=== PATIENT | male | born 1970 | race Caucasian/White ===

== ENCOUNTER 2022-07-13 17:38 | Inpatient (IN) | payer OTHER ==
[2022-07-13] MEDS ORDERED: IBUPROFEN 400 MG TABLET (FP) PO PRN (19:52)
[2022-07-13] MEDS ORDERED: guaiFENesin 200 MG/10 ML 10 ML UNIT-DOSE CUPS PO PRN (19:52)
[2022-07-13] MEDS ORDERED: MAGNESIUM HYDROX 2400MG/30ML ORAL SUSPENSION 30 ML CUP PO PRN (19:52)
[2022-07-13] MEDS ORDERED: LOPERAMIDE HCL 2 MG CAPSULE PO PRN (19:52)
[2022-07-13] MEDS ORDERED: P-EPHED 60MG/TRIPROLIDI 2.5MG TABLET PO PRN (19:52)
[2022-07-13] MEDS ORDERED: NICOTINE 10 MG CARTRIDGE (INHALER) IH PRN (19:52)
[2022-07-13] MEDS ORDERED: MAGNESIUM CITRATE 300 ML BOTTLE PO PRN (19:52)
[2022-07-13] MEDS ORDERED: ACETAMINOPHEN 325 MG TABLET (FP) PO PRN (19:52)
[2022-07-13] MEDS: THIAMINE HCL 100 MG TABLET (FP) PO SCH (23:44)
[2022-07-13] MEDS: MELATONIN 5 MG TABLETS PO SCH (23:44)
[2022-07-14] MEDS: NICOTINE 7 MG/24 HOURS TOPICAL PATCH TD SCH (10:04)
[2022-07-14] MEDS: PRENATAL VITAMINS W/ FOLIC ACID TABLET (FP) PO SCH (10:04)
[2022-07-14] MEDS ORDERED: ALBUTEROL SO4 HFA INHALER IH PRN (11:49)
[2022-07-14 12:48] LABS: HEMATOCRIT 31.1 % (35.4-49); HEMOGLOBIN 9.8 GM/dL (11.7-16.9); MCH 21.6 pg (25.7-33.7); MCHC 31.7 g/dl (32.0-35.9); MEAN CELL VOLUME 68.2 fl (80-96); MEAN PLT VOLUME 7.4 fl (7.5-11.1); PLATELET COUNT 258 10^3/uL (134-434); RBC 4.56 M/mm3 (4.00-5.60); RDW 19.2 % (11.9-15.9)
[2022-07-14 12:51] LABS: ALBUMIN 2.3 g/dl (3.4-5.0); BLOOD UREA NITROGEN 12.3 mg/dL (7-18); CALCIUM 7.8 mg/dL (8.5-10.1)
[2022-07-14 12:54] LABS: CREATININE 0.7 mg/dL (0.55-1.3); WHITE BLOOD COUNT 1.4 K/mm3 (4.0-10.0)
[2022-07-14 12:56] LABS: BILIRUBIN,TOTAL 0.2 mg/dL (0.2-1); TOT PROT 6.6 g/dl (6.4-8.2)
[2022-07-14] MEDS ORDERED: TUBERCULIN PPD 5 TU/0.1ML VIAL ID ONE (17:04)
[2022-07-14] MEDS: THIAMINE HCL 100 MG TABLET (FP) PO SCH (21:48)
[2022-07-14] MEDS: MELATONIN 5 MG TABLETS PO SCH (21:48)
[2022-07-15] MEDS ORDERED: POTASSIUM CHLORIDE TABS 20 MEQ TABLET.ER (FP) PO ONE (09:07)
[2022-07-15] MEDS: FERROUS SO4 325 MG TABLET (FP) PO SCH (10:15)
[2022-07-15] MEDS: NICOTINE 7 MG/24 HOURS TOPICAL PATCH TD SCH (10:15)
[2022-07-15] MEDS: PRENATAL VITAMINS W/ FOLIC ACID TABLET (FP) PO SCH (10:15)
[2022-07-15] MEDS: MAG HYDROX/AL HYDROX/SIMETH 30 ML UNIT-DOSE CUP PO PRN (14:52)
[2022-07-15] MEDS: THIAMINE HCL 100 MG TABLET (FP) PO SCH (21:48)
[2022-07-15] MEDS: MELATONIN 5 MG TABLETS PO SCH (21:48)
[2022-07-15] MEDS: OLANZapine 10 MG TABLET PO SCH (21:49)
[2022-07-16] MEDS: PRENATAL VITAMINS W/ FOLIC ACID TABLET (FP) PO SCH (10:23)
[2022-07-16] MEDS: NICOTINE 7 MG/24 HOURS TOPICAL PATCH TD SCH (10:24)
[2022-07-16] MEDS: FERROUS SO4 325 MG TABLET (FP) PO SCH (10:24)
[2022-07-16] MEDS: SERTRALINE HCL 50 MG TABLET (FP) PO SCH (10:24)
[2022-07-16] MEDS: MAG HYDROX/AL HYDROX/SIMETH 30 ML UNIT-DOSE CUP PO PRN (10:25)
[2022-07-16 11:22] LABS: CALCIUM 8.5 mg/dL (8.5-10.1)
[2022-07-16 11:23] LABS: BLOOD UREA NITROGEN 7.3 mg/dL (7-18); MAGNESIUM 1.9 mg/dL (1.8-2.4)
[2022-07-16 11:26] LABS: CREATININE 0.7 mg/dL (0.55-1.3); PHOSPHOROUS 2.7 mg/dL (2.5-4.9)
[2022-07-16] MEDS: MELATONIN 5 MG TABLETS PO SCH (21:45)
[2022-07-16] MEDS: THIAMINE HCL 100 MG TABLET (FP) PO SCH (21:45)
[2022-07-16] MEDS: OLANZapine 10 MG TABLET PO SCH (21:47)
[2022-07-16] MEDS: hydrOXYzine PAMOATE 25 MG CAPSULE (FP) PO PRN (21:48)
[2022-07-16 23:20] LABS: PH,URINE 7.5 (5.0-8.0); URINE APPEARANCE CLEAR; URINE BILIRUBIN NEGATIVE (NEGATIVE); URINE COLOR YELLOW; URINE GLUCOSE (UA) NEGATIVE (NEGATIVE); URINE KETONE NEGATIVE (NEGATIVE); URINE LEUK ESTERASE NEGATIVE (NEGATIVE); URINE NITRITE NEGATIVE (NEGATIVE); URINE PROTEIN TRACE (NEGATIVE)
[2022-07-17] MEDS: NICOTINE 7 MG/24 HOURS TOPICAL PATCH TD SCH (09:13)
[2022-07-17] MEDS: FERROUS SO4 325 MG TABLET (FP) PO SCH (09:13)
[2022-07-17] MEDS: PRENATAL VITAMINS W/ FOLIC ACID TABLET (FP) PO SCH (09:13)
[2022-07-17] MEDS: SERTRALINE HCL 50 MG TABLET (FP) PO SCH (09:13)
[2022-07-17] MEDS: MELATONIN 5 MG TABLETS PO SCH (21:35)
[2022-07-17] MEDS: THIAMINE HCL 100 MG TABLET (FP) PO SCH (21:35)
[2022-07-17] MEDS: OLANZapine 10 MG TABLET PO SCH (21:35)
[2022-07-17] MEDS: hydrOXYzine PAMOATE 25 MG CAPSULE (FP) PO PRN (21:35)
[2022-07-18] MEDS: NICOTINE 7 MG/24 HOURS TOPICAL PATCH TD SCH (10:30)
[2022-07-18] MEDS: FERROUS SO4 325 MG TABLET (FP) PO SCH (10:30)
[2022-07-18] MEDS: PRENATAL VITAMINS W/ FOLIC ACID TABLET (FP) PO SCH (10:30)
[2022-07-18] MEDS: SERTRALINE HCL 50 MG TABLET (FP) PO SCH (10:30)
[2022-07-18] MEDS: hydrOXYzine PAMOATE 25 MG CAPSULE (FP) PO PRN (21:35)
[2022-07-18] MEDS: MELATONIN 5 MG TABLETS PO SCH (21:35)
[2022-07-18] MEDS: THIAMINE HCL 100 MG TABLET (FP) PO SCH (21:35)
[2022-07-18] MEDS: OLANZapine 10 MG TABLET PO SCH (21:36)
[2022-07-19] MEDS: SERTRALINE HCL 50 MG TABLET (FP) PO SCH (09:28)
[2022-07-19] MEDS: FERROUS SO4 325 MG TABLET (FP) PO SCH (09:28)
[2022-07-19] MEDS: NICOTINE 7 MG/24 HOURS TOPICAL PATCH TD SCH (09:28)
[2022-07-19] MEDS: PRENATAL VITAMINS W/ FOLIC ACID TABLET (FP) PO SCH (09:28)
[2022-07-19] MEDS ORDERED: POTASSIUM CHLORIDE TABS 20 MEQ TABLET.ER (FP) PO ONE (14:23)
[2022-07-19] MEDS ORDERED: NICOTINE 7 MG/24 HOURS TOPICAL PATCH TD PRN (14:25)
[2022-07-19] MEDS: THIAMINE HCL 100 MG TABLET (FP) PO SCH (21:30)
[2022-07-19] MEDS: OLANZapine 10 MG TABLET PO SCH (21:30)
[2022-07-19] MEDS: MELATONIN 5 MG TABLETS PO SCH (21:30)
[2022-07-20] MEDS: FERROUS SO4 325 MG TABLET (FP) PO SCH (09:55)
[2022-07-20] MEDS: SERTRALINE HCL 50 MG TABLET (FP) PO SCH (09:55)
[2022-07-20] MEDS: PRENATAL VITAMINS W/ FOLIC ACID TABLET (FP) PO SCH (09:55)
[2022-07-20 12:20] LABS: CHLORIDE 106 mmol/L (98-107); SODIUM 141 mmol/L (136-145)
[2022-07-20 12:22] LABS: ALBUMIN 2.4 g/dl (3.4-5.0); ANION GAP 8 MMOL/L (8-16); BLOOD UREA NITROGEN 16.8 mg/dL (7-18); CALCIUM 8.3 mg/dL (8.5-10.1); CO2 27 mmol/L (21-32)
[2022-07-20 12:23] LABS: GLUCOSE,RANDOM 125 mg/dL (74-106)
[2022-07-20 12:25] LABS: SGPT/ALT 19 U/L (13-61)
[2022-07-20 12:26] LABS: CREATININE 0.7 mg/dL (0.55-1.3); SGOT/AST 17 U/L (15-37)
[2022-07-20 12:27] LABS: BILIRUBIN,TOTAL < 0.1 mg/dL (0.2-1); TOT PROT 6.9 g/dl (6.4-8.2)
[2022-07-20 12:28] LABS: ALK PHOS 90 U/L (45-117)
[2022-07-20] MEDS: hydrOXYzine PAMOATE 25 MG CAPSULE (FP) PO PRN (21:38)
[2022-07-20] MEDS: THIAMINE HCL 100 MG TABLET (FP) PO SCH (21:38)
[2022-07-20] MEDS: MELATONIN 5 MG TABLETS PO SCH (21:38)
[2022-07-20] MEDS: OLANZapine 5 MG TABLET PO SCH (21:38)
[2022-07-21] MEDS: FERROUS SO4 325 MG TABLET (FP) PO SCH (09:31)
[2022-07-21] MEDS: PRENATAL VITAMINS W/ FOLIC ACID TABLET (FP) PO SCH (09:32)
[2022-07-21] MEDS: SERTRALINE HCL 50 MG TABLET (FP) PO SCH (09:32)
[2022-07-21] MEDS: THIAMINE HCL 100 MG TABLET (FP) PO SCH (21:37)
[2022-07-21] MEDS: MELATONIN 5 MG TABLETS PO SCH (21:37)
[2022-07-21] MEDS: OLANZapine 5 MG TABLET PO SCH (21:37)
[2022-07-22] MEDS: PRENATAL VITAMINS W/ FOLIC ACID TABLET (FP) PO SCH (10:03)
[2022-07-22] MEDS: FERROUS SO4 325 MG TABLET (FP) PO SCH (10:03)
[2022-07-22] MEDS: SERTRALINE HCL 50 MG TABLET (FP) PO SCH (10:03)
[2022-07-22] MEDS: MELATONIN 5 MG TABLETS PO SCH (21:31)
[2022-07-22] MEDS: THIAMINE HCL 100 MG TABLET (FP) PO SCH (21:31)
[2022-07-22] MEDS: OLANZapine 5 MG TABLET PO SCH (21:31)
[2022-07-23] MEDS: FERROUS SO4 325 MG TABLET (FP) PO SCH (09:10)
[2022-07-23] MEDS: SERTRALINE HCL 50 MG TABLET (FP) PO SCH (09:10)
[2022-07-23] MEDS: PRENATAL VITAMINS W/ FOLIC ACID TABLET (FP) PO SCH (09:10)
[2022-07-23] MEDS: THIAMINE HCL 100 MG TABLET (FP) PO SCH (21:47)
[2022-07-23] MEDS: MELATONIN 5 MG TABLETS PO SCH (21:47)
[2022-07-23] MEDS: OLANZapine 5 MG TABLET PO SCH (21:47)
[2022-07-24] MEDS: FERROUS SO4 325 MG TABLET (FP) PO SCH (10:07)
[2022-07-24] MEDS: SERTRALINE HCL 50 MG TABLET (FP) PO SCH (10:07)
[2022-07-24] MEDS: PRENATAL VITAMINS W/ FOLIC ACID TABLET (FP) PO SCH (10:08)
[2022-07-24] MEDS: MELATONIN 5 MG TABLETS PO SCH (21:55)
[2022-07-24] MEDS: hydrOXYzine PAMOATE 25 MG CAPSULE (FP) PO PRN (21:55)
[2022-07-24] MEDS: OLANZapine 5 MG TABLET PO SCH (21:55)
[2022-07-24] MEDS: THIAMINE HCL 100 MG TABLET (FP) PO SCH (21:55)
[2022-07-25] MEDS: FERROUS SO4 325 MG TABLET (FP) PO SCH (10:03)
[2022-07-25] MEDS: SERTRALINE HCL 50 MG TABLET (FP) PO SCH (10:03)
[2022-07-25] MEDS: PRENATAL VITAMINS W/ FOLIC ACID TABLET (FP) PO SCH (10:03)
[2022-07-25] MEDS: OLANZapine 5 MG TABLET PO SCH (21:47)
[2022-07-25] MEDS: MELATONIN 5 MG TABLETS PO SCH (21:48)
[2022-07-25] MEDS: hydrOXYzine PAMOATE 25 MG CAPSULE (FP) PO PRN (21:48)
[2022-07-25] MEDS: THIAMINE HCL 100 MG TABLET (FP) PO SCH (21:48)
[2022-07-26 06:48] VITALS: BP 109/72; PULSE 89; RESP 18; TEMP 98.7
[2022-07-26] MEDS: PRENATAL VITAMINS W/ FOLIC ACID TABLET (FP) PO SCH (09:48)
[2022-07-26] MEDS: FERROUS SO4 325 MG TABLET (FP) PO SCH (09:48)
[2022-07-26] MEDS: SERTRALINE HCL 50 MG TABLET (FP) PO SCH (09:48)
== END 2022-07-26 14:00 | disposition home or self-care (01) | DRG 772 ==
LOC: YASAS 17:38 → Y3E 22:39
PROVIDERS: ADMIT Allergy & Immunology; ATTEND Psychiatry & Neurology Pain Medicine
PROC: HZ42ZZZ Group Counseling for Substance Abuse Treatment, Cognitive-Behavioral (ICD-10-PCS; principal; 2022-07-13)
DX: F14.20 Cocaine dependence, uncomplicated (principal); F12.20 Cannabis dependence, uncomplicated; F17.210 Nicotine dependence, cigarettes, uncomplicated; F20.0 Paranoid schizophrenia; F19.24 Other psychoactive substance dependence with psychoactive substance-induced mood disorder; F41.9 Anxiety disorder, unspecified; F32.A Depression, unspecified; D64.9 Anemia, unspecified; D72.819 Decreased white blood cell count, unspecified; J45.30 Mild persistent asthma, uncomplicated; R07.9 Chest pain, unspecified; R79.89 Other specified abnormal findings of blood chemistry; R60.0 Localized edema; Z89.222 Acquired absence of left upper limb above elbow; Z89.612 Acquired absence of left leg above knee; Z91.51 Personal history of suicidal behavior; Z88.8 Allergy status to other drugs, medicaments and biological substances
CPT/HCPCS: 36415; 80048; 80053; 81003; 83735; 84100; 85027; 86780; 86803; C9803-CS; U0003; U0005

== ENCOUNTER 2022-09-23 23:50 | Inpatient (IN) | payer OTHER ==
[2022-09-23 23:56] VITALS: BMI 23.8
[2022-09-24] MEDS ORDERED: ACETAMINOPHEN 1000 MG/100 ML BAG IVPB ONE (00:52)
[2022-09-24] MEDS ORDERED: VANCOMYCIN 1 GM in D5W (PRE-DOCKED) 1,000 MG/250 ML IVPB ONE (00:53)
[2022-09-24] MEDS ORDERED: CLINDAMYCIN 600MG PREMIX IVPB 600 MG/50 ML BAG IVPB ONE ×2 (00:54→02:31)
[2022-09-24] MEDS ORDERED: ACETAMINOPHEN INJECTION 100 ML IVPB ONE (02:30)
[2022-09-24 02:33] LABS: HEMATOCRIT 35.1 % (35.4-49); HEMOGLOBIN 11.3 GM/dL (11.7-16.9); MCH 24.4 pg (25.7-33.7); MCHC 32.1 g/dl (32.0-35.9); MEAN CELL VOLUME 76.2 fl (80-96); MEAN PLT VOLUME 7.7 fl (7.5-11.1); PLATELET COUNT 273 10^3/uL (134-434); RBC 4.61 M/mm3 (4.00-5.60); RDW 22.2 % (11.9-15.9); WHITE BLOOD COUNT 2.7 K/mm3 (4.0-10.0)
[2022-09-24 02:39] LABS: INR 0.99 (0.83-1.09); PROTHROMBIN TIME (PATIENT) 11.5 SEC (9.7-13.0)
[2022-09-24 02:41] LABS: ACTIVATED PTT 28.6 SECONDS (25.2-36.5)
[2022-09-24 02:52] LABS: ALBUMIN 2.7 g/dl (3.4-5.0); BLOOD UREA NITROGEN 11.8 mg/dL (7-18); CALCIUM 8.4 mg/dL (8.5-10.1)
[2022-09-24 02:55] LABS: CREATININE 0.7 mg/dL (0.55-1.3)
[2022-09-24 02:57] LABS: BILIRUBIN,TOTAL 0.1 mg/dL (0.2-1); TOT PROT 6.9 g/dl (6.4-8.2)
[2022-09-24 04:30] LABS: ANISOCYTOSIS 2+; MACROCYTOSIS 0; OVALOCYTE 2+; TEAR DROP CELLS 1+
[2022-09-24] MEDS ORDERED: PIPERACILLIN/TAZOB 3.375 GM 3.375 GM/50 ML BAG IVPB ONE (06:49)
[2022-09-24] MEDS ORDERED: VANCOMYCIN 1 GM/200 ML PREMIX BAG (RESTRICTED TO ID ONLY) IVPB SCH (07:00)
[2022-09-24] MEDS: PIPERACILLIN/TAZOB 3.375 GM 3.375 GM in DEXTROSE 5%-WATER - 50 ML IVPB SCH ×3 (07:01→19:14)
[2022-09-24] MEDS: SODIUM CHLORIDE 1,000 ML IV SCH (07:01)
[2022-09-24] MEDS ORDERED: VANCOMYCIN/WATER FOR INJ (PEG) 1,000 MG/200 ML BAG IVPB ONE (07:39)
[2022-09-24 07:55] LABS: HEMATOCRIT 35.5 % (35.4-49); HEMOGLOBIN 11.2 GM/dL (11.7-16.9); MCH 24.1 pg (25.7-33.7); MCHC 31.5 g/dl (32.0-35.9); MEAN CELL VOLUME 76.7 fl (80-96); MEAN PLT VOLUME 7.4 fl (7.5-11.1); PLATELET COUNT 247 10^3/uL (134-434); RBC 4.63 M/mm3 (4.00-5.60); RDW 22.2 % (11.9-15.9); WHITE BLOOD COUNT 2.1 K/mm3 (4.0-10.0)
[2022-09-24 08:15] LABS: BLOOD UREA NITROGEN 12.4 mg/dL (7-18); CALCIUM 8.2 mg/dL (8.5-10.1); MAGNESIUM 1.8 mg/dL (1.8-2.4)
[2022-09-24 08:16] LABS: ALBUMIN 2.6 g/dl (3.4-5.0)
[2022-09-24 08:18] LABS: PHOSPHOROUS 2.6 mg/dL (2.5-4.9)
[2022-09-24 08:19] LABS: CREATININE 0.7 mg/dL (0.55-1.3)
[2022-09-24 08:20] LABS: BILIRUBIN,TOTAL 0.1 mg/dL (0.2-1); TOT PROT 6.5 g/dl (6.4-8.2)
[2022-09-24 09:05] LABS: ANISOCYTOSIS 1+; MACROCYTOSIS 1+
[2022-09-24] MEDS ORDERED: OLANZapine 7.5 MG TABLET PO SCH (10:00)
[2022-09-24] MEDS ORDERED: traMADol HCL 50 MG TABLET PO PRN (11:24)
[2022-09-24] MEDS: OLANZAPINE 10 MG, OLANZAPINE 5 MG PO SCH (11:50)
[2022-09-24] MEDS: SERTRALINE HCL 50 MG TABLET (FP) PO SCH (11:50)
[2022-09-24] MEDS: ENOXAPARIN NA (PORCINE) 40 MG/0.4 ML DISP.SYRIN SQ SCH (11:50)
[2022-09-24] MEDS: NICOTINE 14 MG/24 HOURS TOPICAL PATCH TD SCH (11:51)
[2022-09-24] MEDS ORDERED: VANCOMYCIN/WATER FOR INJ (PEG) 1,000 MG/200 ML BAG IVPB SCH (12:00)
[2022-09-24 12:51] LABS: HIV INTERPRETATION NEGATIVE (NEGATIVE)
[2022-09-25] MEDS ORDERED: PIPERACILLIN/TAZOB 3.375 GM 3.375 GM in DEXTROSE 5%-WATER - 50 ML IVPB SCH (02:00)
[2022-09-25] MEDS: PIPERACILLIN/TAZOB 3.375 GM 3.375 GM in DEXTROSE 5%-WATER - 50 ML IVPB SCH ×3 (02:28→19:02)
[2022-09-25] MEDS: ACETAMINOPHEN 325 MG TABLET (FP) PO PRN ×2 (06:17→19:05)
[2022-09-25] MEDS ORDERED: VANCOMYCIN 1 GM/200 ML PREMIX BAG (RESTRICTED TO ID ONLY) IVPB SCH (07:00)
[2022-09-25] MEDS: SODIUM CHLORIDE 1,000 ML IV SCH ×2 (07:22→20:37)
[2022-09-25] MEDS ORDERED: LORazepam 2 MG TABLET PO PRN (10:29)
[2022-09-25] MEDS ORDERED: LORazepam 1 MG TABLET PO PRN (10:34)
[2022-09-25] MEDS: OLANZAPINE 10 MG, OLANZAPINE 5 MG PO SCH (10:56)
[2022-09-25] MEDS: SERTRALINE HCL 50 MG TABLET (FP) PO SCH (10:56)
[2022-09-25] MEDS: NICOTINE 14 MG/24 HOURS TOPICAL PATCH TD SCH (10:57)
[2022-09-25] MEDS: ENOXAPARIN NA (PORCINE) 40 MG/0.4 ML DISP.SYRIN SQ SCH (10:57)
[2022-09-26] MEDS: PIPERACILLIN/TAZOB 3.375 GM 3.375 GM in DEXTROSE 5%-WATER - 50 ML IVPB SCH ×3 (02:00→17:45)
[2022-09-26] MEDS: SODIUM CHLORIDE 1,000 ML IV SCH (06:05)
[2022-09-26] MEDS: ACETAMINOPHEN 325 MG TABLET (FP) PO PRN ×2 (06:12→13:07)
[2022-09-26 10:21] LABS: HEMATOCRIT 35.1 % (35.4-49); HEMOGLOBIN 11.5 GM/dL (11.7-16.9); MCH 24.8 pg (25.7-33.7); MCHC 32.8 g/dl (32.0-35.9); MEAN CELL VOLUME 75.7 fl (80-96); MEAN PLT VOLUME 7.2 fl (7.5-11.1); PLATELET COUNT 237 10^3/uL (134-434); RBC 4.64 M/mm3 (4.00-5.60); RDW 21.6 % (11.9-15.9)
[2022-09-26 10:30] LABS: WHITE BLOOD COUNT 1.9 K/mm3 (4.0-10.0)
[2022-09-26] MEDS: OLANZAPINE 10 MG, OLANZAPINE 5 MG PO SCH (10:37)
[2022-09-26] MEDS: ENOXAPARIN NA (PORCINE) 40 MG/0.4 ML DISP.SYRIN SQ SCH (10:37)
[2022-09-26] MEDS: NICOTINE 14 MG/24 HOURS TOPICAL PATCH TD SCH (10:37)
[2022-09-26] MEDS: SERTRALINE HCL 50 MG TABLET (FP) PO SCH (10:37)
[2022-09-26 10:39] LABS: CALCIUM 8.3 mg/dL (8.5-10.1)
[2022-09-26 10:40] LABS: ALBUMIN 2.8 g/dl (3.4-5.0); BLOOD UREA NITROGEN 14.5 mg/dL (7-18)
[2022-09-26 10:43] LABS: CREATININE 0.8 mg/dL (0.55-1.3)
[2022-09-26 10:45] LABS: BILIRUBIN,TOTAL 0.2 mg/dL (0.2-1); TOT PROT 6.9 g/dl (6.4-8.2)
[2022-09-26 11:54] LABS: ANISOCYTOSIS 1+; MACROCYTOSIS 0
[2022-09-27] MEDS: PIPERACILLIN/TAZOB 3.375 GM 3.375 GM in DEXTROSE 5%-WATER - 50 ML IVPB SCH ×4 (02:23→15:52)
[2022-09-27 03:31] VITALS: RESP 18
[2022-09-27] MEDS: ACETAMINOPHEN 325 MG TABLET (FP) PO PRN (10:17)
[2022-09-27] MEDS: OLANZAPINE 10 MG, OLANZAPINE 5 MG PO SCH (10:18)
[2022-09-27] MEDS: NICOTINE 14 MG/24 HOURS TOPICAL PATCH TD SCH (10:18)
[2022-09-27] MEDS: ENOXAPARIN NA (PORCINE) 40 MG/0.4 ML DISP.SYRIN SQ SCH (10:18)
[2022-09-27] MEDS: SERTRALINE HCL 50 MG TABLET (FP) PO SCH (10:18)
[2022-09-27 16:21] LABS: HEMATOCRIT 35.9 % (35.4-49); HEMOGLOBIN 11.6 GM/dL (11.7-16.9); MCH 24.7 pg (25.7-33.7); MCHC 32.3 g/dl (32.0-35.9); MEAN CELL VOLUME 76.3 fl (80-96); MEAN PLT VOLUME 7.2 fl (7.5-11.1); PLATELET COUNT 263 10^3/uL (134-434); RBC 4.71 M/mm3 (4.00-5.60); RDW 21.7 % (11.9-15.9); WHITE BLOOD COUNT 2.1 K/mm3 (4.0-10.0)
[2022-09-27 16:46] LABS: CALCIUM 8.3 mg/dL (8.5-10.1)
[2022-09-27 16:47] LABS: ALBUMIN 2.9 g/dl (3.4-5.0); BLOOD UREA NITROGEN 15.6 mg/dL (7-18); MAGNESIUM 1.8 mg/dL (1.8-2.4)
[2022-09-27 16:50] LABS: CREATININE 0.8 mg/dL (0.55-1.3)
[2022-09-27 16:51] LABS: BILIRUBIN,TOTAL 0.1 mg/dL (0.2-1); TOT PROT 7.2 g/dl (6.4-8.2)
[2022-09-27 17:13] LABS: ANISOCYTOSIS 0; MACROCYTOSIS 0; PLATELET ESTIMATE NORMAL
[2022-09-27] MEDS ORDERED: AMOX TR/POT CLAV 500MG/125MG TABLETS (FP) PO SCH (17:30)
[2022-09-27 18:09] VITALS: BP 141/84; PULSE 104; TEMP 98.2
== END 2022-09-27 18:42 | disposition other institution (70) | DRG 383 ==
LOC: JER 23:50 → JERBED 09-24 01:00 → J8W 09-24 08:03
PROVIDERS: ADMIT Internal Medicine; ATTEND Nurse Practitioner Family
DX: L03.115 Cellulitis of right lower limb (principal); F41.9 Anxiety disorder, unspecified; F32.A Depression, unspecified; Z89.612 Acquired absence of left leg above knee; Z99.3 Dependence on wheelchair; J45.30 Mild persistent asthma, uncomplicated; F20.0 Paranoid schizophrenia; Z91.51 Personal history of suicidal behavior; F17.210 Nicotine dependence, cigarettes, uncomplicated; F14.20 Cocaine dependence, uncomplicated; D72.819 Decreased white blood cell count, unspecified
CPT/HCPCS: 0241U-QW; 36415; 73590-TC-RT-FY; 73610-TC-RT-FY; 73630-TC-RT-FY; 73701-TC-RT; 80053; 83605; 83735; 84100; 85025; 85610; 85651; 85730; 86140; 86704; 86803; 87040; 87081; 87340; 87389; 87517; 93005; 93010; 99285-25; C9803-CS; Q9967; U0003; U0005

== ENCOUNTER 2022-09-27 19:09 | Inpatient (IN) | payer OTHER ==
[2022-09-27 21:07] VITALS: BMI 22.6
[2022-09-27] MEDS ORDERED: P-EPHED 60MG/TRIPROLIDI 2.5MG TABLET PO PRN (21:55)
[2022-09-27] MEDS ORDERED: ACETAMINOPHEN 325 MG TABLET (FP) PO PRN (21:55)
[2022-09-27] MEDS ORDERED: NICOTINE 10 MG CARTRIDGE (INHALER) IH PRN (21:55)
[2022-09-27] MEDS ORDERED: MAG HYDROX/AL HYDROX/SIMETH 30 ML UNIT-DOSE CUP PO PRN (21:55)
[2022-09-27] MEDS ORDERED: guaiFENesin 200 MG/10 ML 10 ML UNIT-DOSE CUPS PO PRN (21:55)
[2022-09-27] MEDS ORDERED: IBUPROFEN 400 MG TABLET (FP) PO PRN (21:55)
[2022-09-27] MEDS ORDERED: BENZOCAINE/MENTHOL (CHLORASEPTIC ) LOZENGE MM PRN (21:55)
[2022-09-27] MEDS ORDERED: MELATONIN 5 MG TABLETS PO PRN (21:55)
[2022-09-27] MEDS ORDERED: MAGNESIUM HYDROX 2400MG/30ML ORAL SUSPENSION 30 ML CUP PO PRN (21:55)
[2022-09-27] MEDS ORDERED: POLYETHYLENE GLYCOL (HEALTHYLAX) 3350 17 GM PACKET PO PRN (21:55)
[2022-09-27] MEDS ORDERED: LOPERAMIDE HCL 2 MG CAPSULE PO PRN (21:55)
[2022-09-27] MEDS ORDERED: THIAMINE HCL 100 MG TABLET (FP) PO SCH (22:00)
[2022-09-28 01:02] VITALS: RESP 18
[2022-09-28 07:08] VITALS: BP 141/79; PULSE 95; TEMP 97.8
[2022-09-28] MEDS ORDERED: AMOX TR/POT CLAV 500MG/125MG TABLETS (FP) PO SCH (08:00)
[2022-09-28] MEDS ORDERED: PRENATAL VITAMINS W/ FOLIC ACID TABLET (FP) PO SCH (10:00)
[2022-09-28] MEDS ORDERED: SERTRALINE HCL 50 MG TABLET (FP) PO SCH (10:00)
[2022-09-28] MEDS ORDERED: OLANZapine 5 MG TABLET PO SCH (22:00)
== END 2022-09-28 12:30 | disposition left against medical advice (07) | DRG 770 ==
LOC: YASAS 19:09 → Y5N 22:00
PROVIDERS: ADMIT Allergy & Immunology; ATTEND Psychiatry & Neurology Pain Medicine
PROC: HZ42ZZZ Group Counseling for Substance Abuse Treatment, Cognitive-Behavioral (ICD-10-PCS; principal; 2022-09-27)
DX: F14.20 Cocaine dependence, uncomplicated (principal); F12.20 Cannabis dependence, uncomplicated; F17.210 Nicotine dependence, cigarettes, uncomplicated; F20.0 Paranoid schizophrenia; F19.282 Other psychoactive substance dependence with psychoactive substance-induced sleep disorder; F19.280 Other psychoactive substance dependence with psychoactive substance-induced anxiety disorder; F19.24 Other psychoactive substance dependence with psychoactive substance-induced mood disorder; J45.909 Unspecified asthma, uncomplicated; L03.115 Cellulitis of right lower limb; Z89.222 Acquired absence of left upper limb above elbow; Z89.612 Acquired absence of left leg above knee; Z91.51 Personal history of suicidal behavior

== ENCOUNTER 2022-12-11 19:26 | Inpatient (IN) | payer OTHER ==
[2022-12-11 20:16] VITALS: BMI 20.9
[2022-12-11] MEDS ORDERED: DICYCLOMINE HCL 10 MG CAPSULE PO PRN (23:26)
[2022-12-11] MEDS ORDERED: NALOXONE HCL (KLOXXADO) 8 MG SPRAY NS PRN (23:26)
[2022-12-11] MEDS ORDERED: BENZONATATE 200 MG CAPSULE PO PRN (23:26)
[2022-12-11] MEDS ORDERED: ACETAMINOPHEN 325 MG TABLET (FP) PO PRN (23:26)
[2022-12-11] MEDS ORDERED: IBUPROFEN 600 MG TABLET (FP) PO PRN (23:26)
[2022-12-11] MEDS ORDERED: guaiFENesin 600 MG TABLET.ER (FP) PO PRN (23:26)
[2022-12-11] MEDS ORDERED: ONDANSETRON *ODT* 4 MG TABLET SL PRN (23:26)
[2022-12-11] MEDS ORDERED: IBUPROFEN 400 MG TABLET (FP) PO PRN (23:26)
[2022-12-11] MEDS ORDERED: POLYETHYLENE GLYCOL (HEALTHYLAX) 3350 17 GM PACKET PO PRN (23:26)
[2022-12-11] MEDS ORDERED: METHOCARBAMOL 500 MG TABLET PO PRN (23:26)
[2022-12-11] MEDS ORDERED: BENZOCAINE/MENTHOL (CHLORASEPTIC ) LOZENGE MM PRN (23:26)
[2022-12-11] MEDS ORDERED: NALOXONE HCL 0.4 MG/ML VIAL IM PRN (23:26)
[2022-12-11] MEDS ORDERED: NICOTINE 10 MG CARTRIDGE (INHALER) IH PRN (23:26)
[2022-12-11] MEDS ORDERED: BISMUTH SUBSALICYLATE 524 MG/30 ML PO PRN (23:26)
[2022-12-11] MEDS ORDERED: MAG HYDROX/AL HYDROX/SIMETH 30 ML UNIT-DOSE CUP PO PRN (23:26)
[2022-12-11] MEDS ORDERED: LOPERAMIDE HCL 2 MG CAPSULE PO PRN (23:26)
[2022-12-11] MEDS ORDERED: MAGNESIUM HYDROX 2400MG/30ML ORAL SUSPENSION 30 ML CUP PO PRN (23:26)
[2022-12-12] MEDS ORDERED: ALBUTEROL SO4 HFA INHALER IH PRN (07:00)
[2022-12-12] MEDS: PRENATAL VITAMINS W/ FOLIC ACID TABLET (FP) PO SCH (10:20)
[2022-12-12] MEDS: NICOTINE 21 MG/24 HOURS TOPICAL PATCH TD SCH (10:20)
[2022-12-12] MEDS: MELATONIN 5 MG TABLETS PO SCH (21:56)
[2022-12-12] MEDS: THIAMINE HCL 100 MG TABLET (FP) PO SCH (21:56)
[2022-12-12] MEDS: LITHIUM CARBONATE 300 MG CAPSULE PO SCH (21:56)
[2022-12-12] MEDS: OLANZapine 5 MG TABLET PO SCH (21:56)
[2022-12-13] MEDS: PRENATAL VITAMINS W/ FOLIC ACID TABLET (FP) PO SCH (10:30)
[2022-12-13] MEDS: NICOTINE 21 MG/24 HOURS TOPICAL PATCH TD SCH (10:30)
[2022-12-13 10:38] LABS: HEMATOCRIT 37.7 % (35.4-49); MCH 23.3 pg (25.7-33.7); MCHC 31.9 g/dl (32.0-35.9); MEAN PLT VOLUME 8.3 fl (7.5-11.1); PLATELET COUNT 377 10^3/uL (134-434); RBC 5.17 M/mm3 (4.00-5.60); RDW 16.2 % (11.9-15.9)
[2022-12-13 10:45] LABS: ALBUMIN 2.8 g/dl (3.4-5.0); CALCIUM 8.8 mg/dL (8.5-10.1)
[2022-12-13 10:46] LABS: BLOOD UREA NITROGEN 10.8 mg/dL (7-18)
[2022-12-13 10:48] LABS: CREATININE 0.7 mg/dL (0.55-1.3)
[2022-12-13 10:49] LABS: WHITE BLOOD COUNT 1.9 K/mm3 (4.0-10.0)
[2022-12-13 10:50] LABS: BILIRUBIN,TOTAL 0.5 mg/dL (0.2-1); TOT PROT 7.8 g/dl (6.4-8.2)
[2022-12-13] MEDS ORDERED: NICOTINE 21 MG/24 HOURS TOPICAL PATCH TD PRN (13:21)
[2022-12-13] MEDS: OLANZapine 5 MG TABLET PO SCH (21:54)
[2022-12-13] MEDS: LITHIUM CARBONATE 300 MG CAPSULE PO SCH (21:54)
[2022-12-13] MEDS: THIAMINE HCL 100 MG TABLET (FP) PO SCH (21:54)
[2022-12-13] MEDS: MELATONIN 5 MG TABLETS PO SCH (21:54)
[2022-12-14] MEDS: PRENATAL VITAMINS W/ FOLIC ACID TABLET (FP) PO SCH (09:57)
[2022-12-14 11:57] LABS: HEMATOCRIT 36.4 % (35.4-49); HEMOGLOBIN 11.6 GM/dL (11.7-16.9); MCH 23.3 pg (25.7-33.7); MCHC 31.8 g/dl (32.0-35.9); MEAN CELL VOLUME 73.3 fl (80-96); MEAN PLT VOLUME 7.9 fl (7.5-11.1); PLATELET COUNT 356 10^3/uL (134-434); RBC 4.97 M/mm3 (4.00-5.60); RDW 15.8 % (11.9-15.9)
[2022-12-14 12:00] LABS: WHITE BLOOD COUNT 1.9 K/mm3 (4.0-10.0)
[2022-12-14 12:53] LABS: HIV INTERPRETATION NEGATIVE (NEGATIVE)
[2022-12-14 13:33] LABS: ANISOCYTOSIS 0; HELMET CELLS 0; HOWELL-JOLLY BODIES 0; MACROCYTOSIS 0; OVALOCYTE 0; ROULEAU 0; SICKELED CELLS 0; TARGET CELLS 0; TEAR DROP CELLS 0; TOXIC GRANULATION 0
[2022-12-14] MEDS: THIAMINE HCL 100 MG TABLET (FP) PO SCH (22:11)
[2022-12-14] MEDS: OLANZapine 5 MG TABLET PO SCH (22:11)
[2022-12-14] MEDS: MELATONIN 5 MG TABLETS PO SCH (22:12)
[2022-12-14] MEDS: LITHIUM CARBONATE 300 MG CAPSULE PO SCH (22:12)
[2022-12-15 06:40] VITALS: BP 110/79; PULSE 92; RESP 16; TEMP 97.3
[2022-12-15] MEDS: PRENATAL VITAMINS W/ FOLIC ACID TABLET (FP) PO SCH (10:27)
== END 2022-12-15 10:52 | disposition left against medical advice (07) | DRG 770 ==
LOC: YASAS 19:26 → Y3E 23:53
PROVIDERS: ADMIT Allergy & Immunology; ATTEND Psychiatry & Neurology Pain Medicine
PROC: HZ42ZZZ Group Counseling for Substance Abuse Treatment, Cognitive-Behavioral (ICD-10-PCS; principal; 2022-12-11)
DX: F14.20 Cocaine dependence, uncomplicated (principal); F17.210 Nicotine dependence, cigarettes, uncomplicated; F20.0 Paranoid schizophrenia; F19.282 Other psychoactive substance dependence with psychoactive substance-induced sleep disorder; F19.24 Other psychoactive substance dependence with psychoactive substance-induced mood disorder; F41.9 Anxiety disorder, unspecified; F32.A Depression, unspecified; D72.819 Decreased white blood cell count, unspecified; J45.909 Unspecified asthma, uncomplicated; Z89.222 Acquired absence of left upper limb above elbow; Z89.612 Acquired absence of left leg above knee; Z91.51 Personal history of suicidal behavior; Z88.8 Allergy status to other drugs, medicaments and biological substances
CPT/HCPCS: 36415; 80053; 80178; 85025; 85027; 86780; 87389; C9803-CS; U0003; U0005

== ENCOUNTER 2023-11-11 10:10 | Inpatient (IN) | payer OTHER ==
[2023-11-11 10:45] VITALS: BMI 25.7
[2023-11-11] MEDS: MINERAL OIL/PET HY-PHL TOPICAL OINTMENT 454 GM JAR TP SCH (18:54)
[2023-11-11] MEDS ORDERED: OLANZapine 5 MG TABLET PO SCH (22:00)
[2023-11-12] MEDS ORDERED: SERTRALINE HCL 50 MG TABLET (FP) PO SCH (10:00)
[2023-11-12] MEDS: MULTIVITAMINS (DAILY MVI) TABLET (FP) PO SCH (10:50)
[2023-11-12] MEDS: ENOXAPARIN NA (PORCINE) 40 MG/0.4 ML DISP.SYRIN SQ SCH (10:52)
[2023-11-12 11:26] VITALS: RESP 18
[2023-11-12 11:41] LABS: HEMATOCRIT 44.3 % (35.4-49); HEMOGLOBIN 14.3 GM/dL (11.7-16.9); MCH 28.1 pg (25.7-33.7); MCHC 32.3 g/dl (32.0-35.9); MEAN CELL VOLUME 87.1 fl (80-96); MEAN PLT VOLUME 7.9 fl (7.5-11.1); PLATELET COUNT 267 10^3/uL (134-434); RBC 5.09 M/mm3 (4.00-5.60); RDW 20.8 % (11.9-15.9); WHITE BLOOD COUNT 2.7 K/mm3 (4.0-10.0)
[2023-11-12 11:53] LABS: POTASSIUM 4.5 mmol/L (3.5-5.1)
[2023-11-12 11:57] LABS: CALCIUM 8.7 mg/dL (8.5-10.1)
[2023-11-12 11:58] LABS: BLOOD UREA NITROGEN 12.4 mg/dL (7-18); MAGNESIUM 1.8 mg/dL (1.8-2.4)
[2023-11-12 12:01] LABS: CREATININE 0.7 mg/dL (0.55-1.3); PHOSPHOROUS 2.9 mg/dL (2.5-4.9)
[2023-11-12 12:31] LABS: ANISOCYTOSIS 0; MACROCYTOSIS 0
[2023-11-12] MEDS: MELATONIN 5 MG TABLETS PO SCH (22:45)
[2023-11-14 14:26] VITALS: BP 107/69; PULSE 94; TEMP 98.5
[2023-11-14] MEDS ORDERED: AMOX TR/POT CLAV 875MG/125MG TABLETS (FP) PO SCH (17:30)
== END 2023-11-14 15:42 | disposition other institution (70) | DRG 383 ==
LOC: JER 10:10 → JERBED 17:31 → J5S 18:18
PROVIDERS: ADMIT Internal Medicine; ATTEND Internal Medicine
DX: L03.115 Cellulitis of right lower limb (principal); D70.9 Neutropenia, unspecified; F14.20 Cocaine dependence, uncomplicated; I07.1 Rheumatic tricuspid insufficiency; F20.9 Schizophrenia, unspecified; D64.9 Anemia, unspecified; F10.939 Alcohol use, unspecified with withdrawal, unspecified; F17.200 Nicotine dependence, unspecified, uncomplicated; F41.8 Other specified anxiety disorders; J45.909 Unspecified asthma, uncomplicated; Z99.3 Dependence on wheelchair
CPT/HCPCS: 36415; 71045-TC-FY; 73630-TC-RT-FY; 80048; 80053; 83605; 83735; 84100; 84443; 85025; 85027; 86140; 87040; 93005; 93010; 99285-25; J0131; J0875